=== PATIENT | female | born 1960 | race Caucasian/White ===

== ENCOUNTER 2023-03-25 08:00 | Outpatient (CLI) | payer BC | END 2023-03-25 15:30 | disposition home or self-care (01) | LOC: SLB 08:00 → EDSTATUS 03-27 09:15 | PROVIDERS: ATTEND Specialist | DX: Z01.812 Encounter for preprocedural laboratory examination (principal); N84.0 Polyp of corpus uteri; N95.0 Postmenopausal bleeding | CPT/HCPCS: 87081 ==

== ENCOUNTER 2023-04-11 05:55 | Day surgery (SDC) | payer BC ==
[~2023-04-11] VITALS: Ht 154.9 cm; Wt 72.6 kg
[2023-04-11 06:53] VITALS: O2SAT 99
[2023-04-11] MEDS ORDERED: ceFAZolin SODIUM 2 GM in D5W 50 ML IV ONE (07:00)
[2023-04-11] MEDS ORDERED: MIDAZOLAM HCL 2 MG/2 ML VIAL (VERSED) ONE (07:33)
[2023-04-11] MEDS ORDERED: fentaNYL CITRATE/PF 100 MCG/2 ML AMP ONE (07:33)
[2023-04-11] MEDS ORDERED: LR 1,000 ML IV.SOLN IV ONE (07:45)
[2023-04-11] MEDS ORDERED: METOCLOPRAMIDE HCL 10 MG/2 ML VIAL ONE (07:45)
[2023-04-11] MEDS ORDERED: PROPOFOL 200MG/ 20ML VIAL (DIPRIVAN) IV ONE (07:45)
[2023-04-11] MEDS ORDERED: DEXAMETHASONE SOD PHOSPHATE 4 MG/ML VIAL ONE (07:45)
[2023-04-11] MEDS ORDERED: ONDANSETRON HCL 4 MG/2 ML VIAL ONE (07:45)
[2023-04-11] MEDS ORDERED: SUCCINYLCHOLINE CHLORIDE 20 MG/ML(QUELICIN) ONE (07:45)
[2023-04-11] MEDS ORDERED: SEVOFLURANE 15 MIN GAS INH ONE (07:45)
[2023-04-11] MEDS ORDERED: OXYCODONE/ACETAMINOPHEN 5-325 TABLET PO PRN ×2 (09:00)
[2023-04-11] MEDS ORDERED: MORPHINE 4 MG INJ. 4 MG/ML VIAL IVP PRN ×2 (09:00)
[2023-04-11] MEDS ORDERED: KETOROLAC TROMETHAMINE 30 MG VIAL IVP PRN (09:00)
[2023-04-11] MEDS ORDERED: ONDANSETRON HCL 4 MG/2 ML VIAL IVP PRN ×2 (09:00)
[2023-04-11] MEDS ORDERED: HYDROcodone/ACETAMIN 5-325 MG TAB (NORCO/ VICODIN) PO PRN (09:00)
[2023-04-11 09:55] VITALS: BP_SYST 124; PULSE 67; RESP 18
== END 2023-04-11 11:00 | disposition home or self-care (01) ==
LOC: SDS 05:55 → SMU 05:55 → SDS 11:00
PROVIDERS: ATTEND Specialist
DX: N95.0 Postmenopausal bleeding (principal); N84.0 Polyp of corpus uteri; N80.03 Adenomyosis of the uterus; L40.0 Psoriasis vulgaris
CPT/HCPCS: 87081; 58558; 88305; J1100; J2765; J3465; J2405; J2704; J0330; J3010; J7060; J7120; C1819